=== PATIENT | male | born 1955 | race Caucasian/White ===

== ENCOUNTER → 2019-10-01 09:20 | Outpatient (BNVA) | payer OTHER, SELFPAY | PROVIDERS: Family Provider Nurse Practitioner; PCP Nurse Practitioner; Visit Provider Nurse Practitioner Family | DX: E78.5 Hyperlipidemia, unspecified (principal); I10 Essential (primary) hypertension; N52.9 Male erectile dysfunction, unspecified; Z76.0 Encounter for issue of repeat prescription | CPT/HCPCS: 80053; 80061 ==

== ENCOUNTER → 2020-08-06 09:18 | Outpatient (BNVA) | payer SELFPAY | PROVIDERS: Family Provider Nurse Practitioner; PCP Nurse Practitioner; Visit Provider Registered Nurse | DX: I10 Essential (primary) hypertension (principal) | CPT/HCPCS: 80053; 80061; 85025 ==

== ENCOUNTER → 2021-07-05 11:07 | Outpatient (BNVA) | payer OTHER, MEDICARE, SELFPAY | PROVIDERS: Family Provider Nurse Practitioner; PCP Nurse Practitioner; Visit Provider Registered Nurse | DX: R11.2 Nausea with vomiting, unspecified (principal); Z20.822 Contact with and (suspected) exposure to COVID-19 | CPT/HCPCS: 87635 ==

== ENCOUNTER 2021-07-12 15:16 | Outpatient (CLI) | payer OTHER, MEDICARE, SELFPAY ==
--- NOTE | 2021-07-12 15:27 | XRR_ITS ---
PROCEDURE INFORMATION: Exam: XR Chest Exam date and time: 07/12/2021 3:27 PM Age: 66 years old Clinical indication: Condition or disease; Other: Covid-19; Additional info: U07.1 - covid-19 TECHNIQUE: Imaging protocol: XR of the chest. Views: 2 views. COMPARISON: No relevant prior studies available. FINDINGS: Lungs: Coarsening of the lung parenchyma at the bases with bibasilar scarring. No consolidation. Pleural spaces: Unremarkable. No pleural effusion. No pneumothorax. Heart/Mediastinum: Unremarkable. No cardiomegaly. Bones/joints: Unremarkable. XR/XR chest 2V* [id number] IMPRESSION: No acute findings.
== END 2021-07-12 15:17 | disposition home or self-care (01) ==
PROVIDERS: PCP Registered Nurse; Visit Provider Registered Nurse
DX: U07.1 COVID-19 (principal); R06.00 Dyspnea, unspecified
CPT/HCPCS: 71046; 80053; 85025

== ENCOUNTER → 2021-08-19 09:28 | Outpatient (BNVA) | payer OTHER, MEDICARE, SELFPAY | PROVIDERS: PCP Registered Nurse; Visit Provider Surgery | DX: Z20.822 Contact with and (suspected) exposure to COVID-19 (principal) | CPT/HCPCS: 87635 ==

== ENCOUNTER 2021-08-26 06:30 | Day surgery (SDC) | payer OTHER, SELFPAY ==
[2021-08-24 09:43] VITALS: BMI 27.8
--- NOTE | 2021-08-26 06:49 | ANES.PREANE2 ---
Pre-Anesthetic Assessment Height/Weight: Height 1.8 m Weight 90.718 kg Preop Diagnosis: History of colon polyps Operation Date: 08/26/21 08:00 Proposed Procedures p Colonoscopy(Not Applicable) - Jason Yeh MD Familial anesthetic complications: None Was Beta Pieter taken within 24 hours: N/A Was Clonidine taken within 24 hours: N/A Last intake: 08/24/21 Social Tobacco and No alcohol Exam alert, oriented x 3, clear to auscultation bilaterally and regular rate & rhythm Airway Submandibular: within normal limits Cervical ROM: within normal limits Mallampati: Class II Dentition: chipped Comments: Comments: Missing History/ROS No significant complaints Pulmonary None reported CV/HEM Hypertension METS > 4 None reported Hepatic None reported GI Gastroesophageal Reflux Disease Metabolic None reported Musc/skel None reported Neuropsych None reported Anesthetic Plan ASA status: 2 Anesthesia: Anesthesia Evaluation and MAC Other: I discussed with the patient risks, goals, and benefits of MAC and general anesthesia. We discussed spectrum of MAC anesthesia including conversion to general as well as possibility of recall of intraoperative stimuli including discomfort/pain. Patient agrees to proceed with MAC. Risk of > 500 ml blood loss (7ml/kg in children): No Medications/Allergies Home Medications Medication Instructions Recorded Confirmed Last Taken Type sildenafil 50 mg tablet (Viagra) 50 mg PO DAILY PRN #30 tab 10/08/19 08/24/21 Unknown Rx albuterol sulfate 90 mcg/actuation 1 inh INHALATION QID #8.5 g 07/12/21 08/24/21 07/20/21 Rx aerosol inhaler (ProAir HFA) budesonide-formoterol HFA 80 2 puff INHALATION BID #10.2 g 07/12/21 08/24/21 07/20/21 Rx mcg-4.5 mcg/actuation aerosol inhaler (Symbicort) amlodipine 10 mg tablet 10 mg PO DAILY 08/24/21 08/24/21 08/25/21 History lisinopril 40 mg tablet 40 mg PO DAILY 08/24/21 08/24/21 08/25/21 History simvastatin 10 mg tablet 10 mg PO DAILY 08/24/21 08/24/21 08/25/21 History Allergies Allergy/AdvReac Type Severity Reaction Status Date / Time No Known Allergies Allergy Verified 08/26/21 08:05 PFSH Anesthesia Social History Smoking and tobacco status: current every day smoker Alcohol intake: never Adopted: No Caregiver/support person: No Lives independently: No Household members: spouse Marital status: service: No Current occupational status: retired History of recent travel: No Sexually active: Yes Current gender identity: Male Data Anesthesia Cardiac Studies: No Data to Display
[2021-08-26 06:57] VITALS: BP 125/69; PULSE 62; RESP 18; TEMP 36.1; O2SAT 98
[2021-08-26] MEDS: sodium chloride 0.9% 1,000 ML 30 ML IV (07:06)
--- NOTE | 2021-08-26 08:04 | W.PM.OPSFHP ---
Same Day Surgery H&P Indication for Procedure/HPI DATE OF PROCEDURE: August 26, 2021 CHIEF COMPLAINT/INDICATIONFOR SURGICAL PROCEDURE: Colon polyp PREOP DIAGNOSIS: History of colon polyps PLANNED PROCEDURE: Operation Date: 08/26/21 08:00 Proposed Procedures p Colonoscopy(Not Applicable) - Jason Yeh MD Mr. Simon is a pleasant 66 years old gentleman with history of colon polyps about 15 years ago where he did have a colonoscopy.? Ever since he never had a surveillance colonoscopy.? He denies bleeding per rectum or colon cancer history.? Patient is referred to my practice for consideration of surveillance colonoscopy. 08/26/2021 Today the patient is coming for surveillance colonoscopy ROS All systems have been reviewed negative except as per the above or per problem list Medications/Allergies* Home Medications Medication Instructions Recorded Confirmed Type amlodipine 10 mg tablet 10 mg PO DAILY 08/24/21 08/24/21 History lisinopril 40 mg tablet 40 mg PO DAILY 08/24/21 08/24/21 History simvastatin 10 mg tablet 10 mg PO DAILY 08/24/21 08/24/21 History Allergies/Adverse Reactions Allergy/AdvReac Type Severity Reaction Status Date / Time No Known Allergies Allergy Verified 08/26/21 08:05 Current Medications: Generic Name Dose Route Start Last Admin Trade Name Freq PRN Reason Stop Dose Admin Sodium Chloride 1,000 mls @ 30 mls/hr 08/26/21 06:45 08/26/21 07:06 Sodium Chloride 0.9% IV 30 mls/hr .Q24H VALERIA Administration Pertinent History/Comorbid Conditions* Social History Smoking and tobacco status: current every day smoker Alcohol intake: never Adopted: No Caregiver/support person: No Lives independently: No Household members: spouse Marital status: service: No Current occupational status: retired History of recent travel: No Sexually active: Yes Current gender identity: Male Pertinent Exam Findings alert, oriented x 3, regular rate & rhythm and procedure specific exam findings (Abdominal examination nontender nondistended soft) Recommendations Surgery/Procedure today (Surveillance colonoscopy ) Coding Level of Care Code Acute Locomotive Engineer for Rickey Martinez
[2021-08-26 08:37] VITALS: BP 107/68; PULSE 65; RESP 16; TEMP 36.1; O2SAT 95
[2021-08-26 08:48] VITALS: BP 97/65; PULSE 56; RESP 16; O2SAT 95
--- NOTE | 2021-08-26 10:13 | ANE.PACU2 ---
Inpatient post-anesthesia follow up: Airway intact: Yes Vital signs: Temperature 97 F Pulse Rate 56 Respiratory Rate 16 Blood Pressure 97/65 Pulse Oximetry 95 Oxygen Delivery Me thod Room Air Oxygen Flow Rate Fraction of Inspir ed Oxygen Hydration adequate: Yes Nausea and vomiting: No Pain level: 1 Mental status: Baseline
== END 2021-08-26 09:08 | disposition home or self-care (01) ==
PROVIDERS: PCP Registered Nurse; Visit Provider Surgery
PROC: 0DJD8ZZ Inspection of Lower Intestinal Tract, Via Natural or Artificial Opening Endoscopic (ICD-10-PCS; CPT 45378; principal; 2021-08-26 08:00)
DX: Z12.11 Encounter for screening for malignant neoplasm of colon (principal); Z86.010 Personal history of colon polyps; F17.210 Nicotine dependence, cigarettes, uncomplicated; D12.8 Benign neoplasm of rectum; I10 Essential (primary) hypertension; K21.9 Gastro-esophageal reflux disease without esophagitis
CPT/HCPCS: 45385; 88305; J2704; J7030

== ENCOUNTER → 2021-09-08 10:25 | Outpatient (BNVA) | payer MEDICARE, SELFPAY | PROVIDERS: PCP Registered Nurse; Visit Provider Surgery | DX: Z09 Encounter for follow-up examination after completed treatment for conditions other than malignant neoplasm (principal); K55.20 Angiodysplasia of colon without hemorrhage; K63.5 Polyp of colon; F17.210 Nicotine dependence, cigarettes, uncomplicated | CPT/HCPCS: 99213 ==

== ENCOUNTER 2021-09-17 08:27 | Outpatient (CLI) | payer MEDICARE, SELFPAY ==
--- NOTE | 2021-09-17 08:38 | CT_ITS ---
WS: [id number] LDCT LUNG CANCER SCREENING HISTORY: Z12.2 - Encounter for screening for malignant neoplasm TECHNIQUE: Axial imaging performed from the apices to 1 cm below the costophrenic angles. Coronal and sagittal reformats are submitted with axial MIP series. All CT scans at [facility] use at least one of these dose optimization techniques: automated exposure control; mA and/or kV adjustment per patient size (includes targeted exams where dose is matched to clinical indication); or iterativ e reconstruction. DLP: 79.60 mGy.cm DIvol: Mean CTDIvol: 1.60 (mGy) COMPARISON: None available. Diagnostic quality: Satisfactory Lung Nodules: Rounded 8 mm nodule with no calcification partially abuts the minor fissure and extends towards the RIGHT upper lobe. There is additional pleural thickening along the fissure. There is ext ensive interstitial thickening and fibrotic changes throughout both lungs involving the upper and low er lobes. More predominant along the fissures and in the lung periphery. Heart: Normal size heart. Normal size pulmonary artery. Other findings: 19 mm RIGHT paratracheal lymph node is enlarged. There are additional smaller but ind eterminate lymph nodes in the hilar regions. CT/CT lung screening [id number] IMPRESSION: LUNG-RADS: 4BS-Suspicious with Significant Findings FOLLOW UP: 3 Month LDCT OTHER FINDINGS (S MODIFIER): There is extensive interstitial and pleural thicke cornell which is probably related to chronic interstitial lung disease and fibrosi s. Enlarged RIGHT paratracheal lymph node is probably reactive. This can also be f urther evaluated on follow-up CT.
== END 2021-09-17 08:28 | disposition home or self-care (01) ==
LOC: RAD 08:31
PROVIDERS: PCP Registered Nurse; Visit Provider Registered Nurse
DX: Z12.2 Encounter for screening for malignant neoplasm of respiratory organs (principal)
CPT/HCPCS: 71271

== ENCOUNTER → 2021-10-06 09:38 | Outpatient (BNVA) | payer MEDICARE, SELFPAY | PROVIDERS: PCP Registered Nurse; Visit Provider Internal Medicine Critical Care Medicine | DX: J84.9 Interstitial pulmonary disease, unspecified (principal); R59.0 Localized enlarged lymph nodes; F17.210 Nicotine dependence, cigarettes, uncomplicated | CPT/HCPCS: 36415; 82085; 82550; 84182; 85651; 86038; 86140; 86200; 86235; 86331; 86431; 86606; 86609; 99204 ==

== ENCOUNTER 2021-10-20 06:48 | Outpatient (CLI) | payer MEDICARE, SELFPAY ==
--- NOTE | 2021-10-20 12:54 | PFTS_ITS ---
Date of Study:10/20/21 Date of Dictation: MECHANICS: Forced vital capacity (FVC) is normal. Forced expiratory volume in one second (FEV1) is normal. FEV1/FVC is normal. FLOW VOLUME LOOP: Normal. LUNG VOLUMES: Total lung capacity (TLC) is normal. Residual volume (RV) is normal. DIFFUSING CAPACITY FOR CARBON MONOXIDE: Moderately reduced. INTERPRETATION: The postbronchodilator spirometry is normal. There is no significant postbronchodilator response. Lung volumes are normal. Gas exchange (DLCO) is moderately reduced. MTDD
== END 2021-10-20 06:49 | disposition home or self-care (01) ==
PROVIDERS: PCP Registered Nurse; Visit Provider Internal Medicine Critical Care Medicine
DX: J84.9 Interstitial pulmonary disease, unspecified (principal)
CPT/HCPCS: 94060; 94726; 94729; J7611

== ENCOUNTER → 2021-10-27 10:26 | Outpatient (BNVA) | payer MEDICARE, SELFPAY | PROVIDERS: PCP Registered Nurse; Visit Provider Internal Medicine Critical Care Medicine | DX: J84.9 Interstitial pulmonary disease, unspecified (principal); R59.0 Localized enlarged lymph nodes; F17.210 Nicotine dependence, cigarettes, uncomplicated; Z86.16 Personal history of COVID-19 | CPT/HCPCS: 99214 ==

== ENCOUNTER → 2021-12-14 08:40 | Outpatient (BNVA) | payer MEDICARE, SELFPAY | PROVIDERS: PCP Registered Nurse; Visit Provider Internal Medicine Rheumatology | DX: J84.9 Interstitial pulmonary disease, unspecified (principal); R76.8 Other specified abnormal immunological findings in serum; G72.49 Other inflammatory and immune myopathies, not elsewhere classified; Z11.59 Encounter for screening for other viral diseases; M25.50 Pain in unspecified joint; K21.9 Gastro-esophageal reflux disease without esophagitis; J44.9 Chronic obstructive pulmonary disease, unspecified; Z86.16 Personal history of COVID-19; Z79.899 Other long term (current) drug therapy | CPT/HCPCS: 36415; 80076; 81401; 82085; 82306; 82550; 82565; 83520; 85025; 85651; 86038; 86140; 86480; 86704; 86803; 87340; 99205 ==

== ENCOUNTER 2021-12-23 15:32 | Outpatient (CLI) | payer MEDICARE, SELFPAY ==
--- NOTE | 2021-12-23 16:30 | CT_ITS ---
WS: [id number] CT CHEST CT-HIGH RESOLUTION, NONCONTRAST. HISTORY: Interstitial lung disease. Technique: High-resolution chest CT is performed in inspiration, expiration, supine and prone [facility]. All CT scans at [facility] use at least one of these dose optimization techniques: automated exposure control; mA and/or kV adjustment per patient size (includes targeted exams where dose is mat ched to clinical indication); or iterative reconstruction. DLP: 2876.78 mGy.cm COMPARISON: None. Findings: Lung volumes appear slightly reduced. There is extensive bilateral upper and lower lobe manuela undglass attenuation. Slightly more prominent in the lower lung huff. No honeycombing. Very early m inimal changes of bronchiectasis in the lower lung huff without retraction. No discrete nodules are identified. With expiration there is significant decrease in the lung volumes. The areas of groundgl ass increase as expected. No focal lucency or air trapping is identified. On the prone imaging there is very slight improvement but there are significant areas of groundglass opacification persisting. 15 mm RIGHT paratracheal and subcarinal lymph nodes. There are additional smaller lymph nodes. Pulmon johnny artery size is normal. Mild atherosclerosis of aorta. Small hiatal hernia. Gallbladder is contracted. No adrenal mass. CT/CT chest wo con [id number] Impression: 1. Diffuse bilateral groundglass opacifications without significant traction b ronchiectasis or honeycombing. Consider hypersensitivity pneumonitis and NSIP. 2. Mildly prominent RIGHT paratracheal and subcarinal lymph nodes to 15 mm May be reactive.
== END 2021-12-23 15:33 | disposition home or self-care (01) ==
PROVIDERS: PCP Registered Nurse; Visit Provider Internal Medicine Critical Care Medicine
DX: J84.9 Interstitial pulmonary disease, unspecified (principal)
CPT/HCPCS: 71250

== ENCOUNTER → 2022-01-27 10:29 | Outpatient (BNVA) | payer MEDICARE, SELFPAY | PROVIDERS: PCP Registered Nurse; Visit Provider Internal Medicine Critical Care Medicine | DX: J84.9 Interstitial pulmonary disease, unspecified (principal); H53.8 Other visual disturbances; R59.0 Localized enlarged lymph nodes; F17.210 Nicotine dependence, cigarettes, uncomplicated | CPT/HCPCS: 80048; 80076; 82550; 82565; 86140; 99214 ==

== ENCOUNTER → 2022-02-02 09:42 | Outpatient (BNVA) | payer MEDICARE, SELFPAY | PROVIDERS: PCP Registered Nurse; Referring Provider Internal Medicine Rheumatology; Visit Provider Specialist | DX: G62.89 Other specified polyneuropathies (principal); M25.50 Pain in unspecified joint; G72.49 Other inflammatory and immune myopathies, not elsewhere classified; J84.9 Interstitial pulmonary disease, unspecified; Z79.899 Other long term (current) drug therapy; R76.8 Other specified abnormal immunological findings in serum; R06.09 Other forms of dyspnea; J44.9 Chronic obstructive pulmonary disease, unspecified; Z86.16 Personal history of COVID-19; F17.210 Nicotine dependence, cigarettes, uncomplicated | CPT/HCPCS: 36415; 82085; 85025; 85651; 95913; 99214; 99215 ==

== ENCOUNTER → 2022-03-03 11:34 | Outpatient (BNVA) | payer MEDICARE, SELFPAY | PROVIDERS: PCP Registered Nurse; Referring Provider Internal Medicine Rheumatology; Visit Provider Specialist | DX: R76.8 Other specified abnormal immunological findings in serum (principal); J84.9 Interstitial pulmonary disease, unspecified; G72.49 Other inflammatory and immune myopathies, not elsewhere classified | CPT/HCPCS: 95861; 99202 ==

== ENCOUNTER 2022-03-14 11:24 | Outpatient (CLI) | payer MEDICARE, SELFPAY ==
--- NOTE | 2022-03-14 11:30 | USCV_ITS ---
Erasmo Simon Age: 67 Gender: M : 1955 Exam Date: 03/14/2022 11:33 Ordering Phys: Micky Calvo MD Technologist: CT [place]am [place] [facility] [place] Indication: visual disturbance Risk Factors: Previous Vascular Surgery: Right Brachial BP: / Left Brachial BP: / Right Left Velocity (cm/s) Spectral Plaque Velocity (cm/s) Spectral Plaque Syst/Diast Broadening Syst/Diast Broadening 60.40/ 16.00 Prox CCA 86.90 / 20.00 68.00/ 16.80 Mid CCA 73.90 / 15.60 69.50/ 16.00 Distal CCA 64.50 / 18.70 146.70/43.50 Prox ICA 52.50 / 15.00 131.80/32.10 Mid ICA 59.60 / 18.40 134.10/25.20 Distal ICA 52.60 / 13.00 90.20 ECA 99.90 2.11 ICA/CCA 0.69 Antegrade Vertebral Antegrade 42.40/ 11.50 cm/s 49.30/ 17.60 cm/s Tri Subclavian Tri 85.70 86.90 CONCLUSIONS Right ICA stenosis 50-69%. Moderate calcified atheromatous plaque right carotid bulb/ICA. Left ICA stenosis <50%. Mild atheromatous plaque left carotid bulb/ICA. Normal antegrade Doppler flow noted in the right vertebral artery. Normal antegrade Doppler flow noted in the left vertebral artery. Guzman Dunn MD (Electronically Signed) Final Date: 15 March 2022 11:51 S
== END 2022-03-14 11:25 | disposition home or self-care (01) ==
PROVIDERS: PCP Registered Nurse; Visit Provider Internal Medicine Critical Care Medicine
DX: H53.8 Other visual disturbances (principal); I65.23 Occlusion and stenosis of bilateral carotid arteries
CPT/HCPCS: 93880

== ENCOUNTER → 2022-03-31 07:53 | Outpatient (BNVA) | payer MEDICARE, SELFPAY | PROVIDERS: PCP Registered Nurse; Visit Provider Thoracic Surgery (Cardiothoracic Vascular Surgery) | DX: I77.9 Disorder of arteries and arterioles, unspecified (principal) | CPT/HCPCS: 99203 ==

== ENCOUNTER 2022-03-31 08:32 | Outpatient (CLI) | payer MEDICARE, SELFPAY ==
[2022-03-31 09:00] LABS: Basophils # 0.1 10^3/uL (0.0-0.1); Basophils % 0.8 %; Eosinophils # 0.2 10^3/uL (0.0-0.8); Hematocrit 44.4 % (42.0-52.0); Hemoglobin 14.1 g/dL (11.7-16.6); Lymphocytes # 2.7 10^3/uL (0.8-4.8); Lymphocytes % 29.8 %; Mean Corpuscular HGB Conc 31.8 g/dL (30.0-36.0); Mean Corpuscular Hemoglobin 27.6 pg (28.0-34.0); Mean Corpuscular Volume 87.1 fl (80-94); Mean Platelet Volume 8.6 fL (7.4-10.4); Monocytes # 0.9 10^3/uL (0.2-0.9); Monocytes % 10.5 %; Neutrophils # 5.02 10^3/uL (1.8-7.7); Nucleated Red Blood Cells % 0 %; Platelet Count 404 10^3/cmm (130-400)
[2022-03-31 09:12] LABS: Erythrocyte Sedimentation Rate 36 mm/hr (0-10)
[2022-03-31 09:27] LABS: Alanine Aminotransferase 10 U/L (0-41); Albumin Level 3.9 g/dL (3.5-5.2); Alkaline Phosphatase 81 U/L (40-130); Aspartate Amino Transferase 15 U/L (0-40); C Reactive Protein 25.4 mg/L (0.0-4.9); Globulin 3.6 g/dL (1.3-4.6); Glomerular Filtration Rate 74.8 mL/min (90-130); Total Bilirubin 0.3 mg/dL (0.15-1.2); Total Protein 7.5 g/dL (6.6-8.7)
[2022-03-31 09:43] LABS: Creatine Phosphokinase 396 U/L (39-308)
[2022-04-01 13:22] LABS: Aldolase 6.3 U/L (< OR = 8.1)
== END 2022-03-31 08:33 | disposition home or self-care (01) ==
LOC: LAB 08:35
PROVIDERS: PCP Registered Nurse; Visit Provider Internal Medicine Rheumatology
DX: G72.49 Other inflammatory and immune myopathies, not elsewhere classified (principal); J84.9 Interstitial pulmonary disease, unspecified; Z79.899 Other long term (current) drug therapy
CPT/HCPCS: 36415; 80076; 82085; 82550; 82565; 85025; 85651; 86140

== ENCOUNTER 2022-04-06 12:37 | Outpatient (CLI) | payer MEDICARE, SELFPAY | END 2022-04-06 12:38 | disposition home or self-care (01) | LOC: RT 12:39 | PROVIDERS: PCP Registered Nurse; Visit Provider Internal Medicine Pulmonary Disease | DX: J84.9 Interstitial pulmonary disease, unspecified (principal); G72.49 Other inflammatory and immune myopathies, not elsewhere classified; M25.50 Pain in unspecified joint; R76.8 Other specified abnormal immunological findings in serum; Z79.899 Other long term (current) drug therapy; R06.09 Other forms of dyspnea; J44.9 Chronic obstructive pulmonary disease, unspecified; Z86.16 Personal history of COVID-19 | CPT/HCPCS: 94010; 94726; 94729; 99214 ==

== ENCOUNTER → 2022-06-02 13:04 | Outpatient (BNVA) | payer MEDICARE, SELFPAY | PROVIDERS: PCP Registered Nurse; Visit Provider Internal Medicine Pulmonary Disease | DX: J84.9 Interstitial pulmonary disease, unspecified (principal); R59.0 Localized enlarged lymph nodes; J40 Bronchitis, not specified as acute or chronic; F17.210 Nicotine dependence, cigarettes, uncomplicated; R06.02 Shortness of breath | CPT/HCPCS: 99214 ==

== ENCOUNTER → 2022-06-24 09:28 | Outpatient (BNVA) | payer MEDICARE, SELFPAY | PROVIDERS: PCP Registered Nurse; Visit Provider Internal Medicine Rheumatology | DX: G72.49 Other inflammatory and immune myopathies, not elsewhere classified (principal); Z79.899 Other long term (current) drug therapy | CPT/HCPCS: 80076; 82085; 82550; 82552; 82565; 85025; 85651; 86140 ==

== ENCOUNTER → 2022-07-06 14:05 | Outpatient (BNVA) | payer MEDICARE, SELFPAY | PROVIDERS: PCP Registered Nurse; Visit Provider Internal Medicine Rheumatology | DX: M19.90 Unspecified osteoarthritis, unspecified site (principal); G72.49 Other inflammatory and immune myopathies, not elsewhere classified; R76.8 Other specified abnormal immunological findings in serum; J84.9 Interstitial pulmonary disease, unspecified; F17.210 Nicotine dependence, cigarettes, uncomplicated; J44.9 Chronic obstructive pulmonary disease, unspecified; Z86.16 Personal history of COVID-19 | CPT/HCPCS: 99214 ==

== ENCOUNTER 2022-08-22 06:55 | Outpatient (CLI) | payer MEDICARE, SELFPAY ==
--- NOTE | 2022-08-22 07:00 | CTR_ITS ---
PROCEDURE INFORMATION: Exam: CT Chest Without Contrast; Diagnostic Exam date and time: 08/22/2022 7:15 AM Age: 67 years old Clinical indication: Condition or disease; Lung condition and disease; Other: Interstitial lung disease; Additional info: 3 month f/u interstitial lung disease TECHNIQUE: Imaging protocol: Diagnostic computed tomography of the chest without contrast. Radiation optimization: All CT scans at this facility use at least one of these dose optimization techniques: automated exposure control; mA and/or kV adjustment per patient size (includes targeted exams where dose is matched to clinical indication); or iterative reconstruction. REPORTING DATA: Count of CT and Cardiac NM exams in prior 12 months: This patient has received 2 known CTs and 0 known cardiac nuclear medicine studies in the 12 months prior to the current study. COMPARISON: CT chest wo con [id number] 12/23/2021 3:48 PM RADIATION DOSE METRICS: Total DLP (mGy-cm): 2155.17 FINDINGS: Lungs: COPD, bilateral interstitial/airspace disease, and chronic granulomatous disease. When compared to the previous study, the extent of lower lobe airspace disease has improved. Stable 7 mm nodular lesion contiguous with the right minor fissure (series 4: Image 28 and series 18: Image 25). Recommend follow-up CT Chest in 6-12 months. (References: Genoveva and Deacon). Pleural spaces: No pleural effusion. Heart: No cardiomegaly or significant coronary artery calcification. Lymph nodes: Calcified and noncalcified lymph nodes including a stable 2.2 x 1.9 by 2.4 cm noncalcified right paratracheal lymph node. Vasculature: Calcification of the normal caliber thoracic aorta. Bones/joints: Mild degenerative change. Soft tissues: Unremarkable. CT/CT chest wo con [id number] IMPRESSION: 1. COPD, bilateral interstitial/airspace disease, and chronic granulomatous disease. When compared to the previous study, the extent of lower lobe airspace disease has improved. 2. Stable 7 mm nodular lesion contiguous with the right minor fissure (series 4: Image 28 and series 18: Image 25). Recommend follow-up CT Chest in 6-12 months. (References: Genoveva and Deacon). 3. Additional findings as described above.
== END 2022-08-22 06:56 | disposition home or self-care (01) ==
LOC: RAD 06:57
PROVIDERS: PCP Registered Nurse; Visit Provider Internal Medicine Pulmonary Disease
DX: J84.9 Interstitial pulmonary disease, unspecified (principal); J44.9 Chronic obstructive pulmonary disease, unspecified; R91.1 Solitary pulmonary nodule
CPT/HCPCS: 71250

== ENCOUNTER 2022-08-30 06:39 | Outpatient (CLI) | payer MEDICARE, SELFPAY | END 2022-08-30 06:40 | disposition home or self-care (01) | LOC: RT 06:40 | PROVIDERS: PCP Registered Nurse; Visit Provider Internal Medicine Pulmonary Disease | DX: J84.9 Interstitial pulmonary disease, unspecified (principal); F17.210 Nicotine dependence, cigarettes, uncomplicated | CPT/HCPCS: 94010; 94726; 94729 ==

== ENCOUNTER → 2022-09-28 14:22 | Outpatient (BNVA) | payer MEDICARE, SELFPAY | PROVIDERS: PCP Registered Nurse; Visit Provider Internal Medicine Rheumatology | DX: G72.49 Other inflammatory and immune myopathies, not elsewhere classified (principal); M19.90 Unspecified osteoarthritis, unspecified site; Z79.899 Other long term (current) drug therapy; R76.8 Other specified abnormal immunological findings in serum; J84.9 Interstitial pulmonary disease, unspecified | CPT/HCPCS: 36415; 80076; 82085; 82550; 82565; 85025; 86140; 99214 ==

== ENCOUNTER → 2022-12-21 08:34 | Outpatient (BNVA) | payer MEDICARE, SELFPAY | PROVIDERS: PCP Registered Nurse; Visit Provider Internal Medicine Pulmonary Disease | DX: J84.9 Interstitial pulmonary disease, unspecified (principal); R59.0 Localized enlarged lymph nodes; J98.4 Other disorders of lung; F17.210 Nicotine dependence, cigarettes, uncomplicated; Z79.52 Long term (current) use of systemic steroids; R76.8 Other specified abnormal immunological findings in serum | CPT/HCPCS: 99214 ==

== ENCOUNTER → 2022-12-29 14:24 | Outpatient (BNVA) | payer MEDICARE, SELFPAY | PROVIDERS: PCP Registered Nurse; Visit Provider Internal Medicine Rheumatology | DX: M19.90 Unspecified osteoarthritis, unspecified site (principal); G72.49 Other inflammatory and immune myopathies, not elsewhere classified; R76.8 Other specified abnormal immunological findings in serum; J84.9 Interstitial pulmonary disease, unspecified | CPT/HCPCS: 36415; 80076; 82550; 82565; 85025; 86140; 99214 ==

== ENCOUNTER 2023-02-22 09:46 | Outpatient (CLI) | payer MEDICARE, SELFPAY ==
--- NOTE | 2023-02-22 10:00 | CT_ITS ---
WS: [id number] CT chest wo con [id number] HISTORY: ct chest to follow up on right middle lobe nodule TECHNIQUE: Axial imaging performed through the thorax. Coronal and sagittal reformats are submitted. All CT scans at [facility] use at least one of these dose optimization techniques: automated exposure control; mA and/or kV adjustment per patient size (includes targeted exams where dose is mat ched to clinical indication); or iterative reconstruction. CONTRAST: None DLP: 545.85 mGy.cm COMPARISON: 09/17/2021 and 08/22/2022 Lungs and central airway: Lung volumes slightly decreased. 7 mm noncalcified nodule in the RIGHT nadiya r fissure is reidentified measuring 7 mm. No change in size since the most recent examination of 08/22. This nodule is slightly decreased as compared to 09/17/2021. Continued bilateral areas of inter stitial thickening and groundglass attenuation. No areas of dense consolidation. Pleura: Normal. No pleural effusion. Heart and pericardium: Normal size heart with no pericardial effusion. Mediastinum and gadiel: No mediastinum or hilar adenopathy. Vessels: Mild atherosclerosis aorta. Normal sized pulmonary artery. Chest wall and lower neck: No soft tissue masses. Upper abdomen: Calcified granuloma near the GE junction. No adrenal mass. Osseous structures: No destructive process. IMPRESSION: 1. Stable 7 mm nodule along the RIGHT minor fissure. No increase in size since 09/17/2021. 2. Diffuse bilateral groundglass opacifications and interstitial thickening. This can be seen with hy persensitivity pneumonia and NSIP. 3. No adenopathy or progression of lymph node size. No pneumonia or dense consolidation.
== END 2023-02-22 09:47 | disposition home or self-care (01) ==
PROVIDERS: PCP Registered Nurse; Visit Provider Internal Medicine Pulmonary Disease
DX: J84.9 Interstitial pulmonary disease, unspecified (principal); R91.8 Other nonspecific abnormal finding of lung field
CPT/HCPCS: 71250

== ENCOUNTER 2023-03-22 07:43 | Outpatient (CLI) | payer MEDICARE, SELFPAY ==
--- NOTE | 2023-03-22 08:15 | USCV_ITS ---
Erasmo Simon Age: 68 Gender: M : 1955 Exam Date: 03/22/2023 08:13 Ordering Phys: Arben Maritnez MD (Andy) ([email or web address] [place] Technologist: YANE [place] [facility] [place]: STENOSIS Risk Factors: Previous Vascular Surgery: Right Brachial BP: / Left Brachial BP: / Right Left Velocity (cm/s) Spectral Plaque Velocity (cm/s) Spectral Plaque Syst/Diast Broadening Syst/Diast Broadening 71.70/ 18.70 Prox CCA 72.00 / 10.90 62.00/ 18.10 Mid CCA 63.80 / 15.90 45.80/ 13.60 Distal CCA 70.30 / 19.70 73.80/ 27.20 Prox ICA 54.40 / 20.20 138.80/35.70 Mid ICA 68.50 / 25.00 97.80/ 27.80 Distal ICA 66.30 / 24.20 100.20 ECA 93.70 1.94 ICA/CCA 0.95 Antegrade Vertebral Antegrade 33.40/ 8.70 cm/s 20.10/ 6.90 cm/s Tri Subclavian Tri 128.6 104.3 0 0 FINDINGS Comparison:. 03/14/22. Mild elevation of velocities and plaque, bilateral. Greater plaque on the right. Antegrade vertebral arteries. CONCLUSIONS Right ICA stenosis 50-69%. Left ICA stenosis < 50%. No interval change in stenosis since prior exam. Dr. Zofia Brandon DO (Electronically Signed) Final Date: 22 March 2023 11:52 S
== END 2023-03-22 07:44 | disposition home or self-care (01) ==
LOC: RAD 07:43
PROVIDERS: PCP Registered Nurse; Visit Provider Thoracic Surgery (Cardiothoracic Vascular Surgery)
DX: I65.23 Occlusion and stenosis of bilateral carotid arteries (principal)
CPT/HCPCS: 93880

== ENCOUNTER → 2023-03-30 09:32 | Outpatient (BNVA) | payer MEDICARE, SELFPAY | PROVIDERS: PCP Registered Nurse; Visit Provider Thoracic Surgery (Cardiothoracic Vascular Surgery) | DX: I77.9 Disorder of arteries and arterioles, unspecified (principal) | CPT/HCPCS: 99213 ==

== ENCOUNTER → 2023-04-06 13:26 | Outpatient (BNVA) | payer MEDICARE, SELFPAY | PROVIDERS: PCP Registered Nurse; Visit Provider Internal Medicine Rheumatology | DX: G72.49 Other inflammatory and immune myopathies, not elsewhere classified (principal); R76.8 Other specified abnormal immunological findings in serum; J84.9 Interstitial pulmonary disease, unspecified; M19.90 Unspecified osteoarthritis, unspecified site | CPT/HCPCS: 36415; 80076; 82565; 85025; 86140; 99214 ==

== ENCOUNTER → 2023-06-21 09:03 | Outpatient (BNVA) | payer MEDICARE, SELFPAY | PROVIDERS: PCP Registered Nurse; Visit Provider Internal Medicine Pulmonary Disease | DX: J84.9 Interstitial pulmonary disease, unspecified (principal); R59.0 Localized enlarged lymph nodes; J98.4 Other disorders of lung; F17.210 Nicotine dependence, cigarettes, uncomplicated; R91.1 Solitary pulmonary nodule | CPT/HCPCS: 99214 ==

== ENCOUNTER 2023-07-11 08:42 | Outpatient (CLI) | payer MEDICARE, SELFPAY | END 2023-07-11 08:43 | disposition home or self-care (01) | LOC: RT 08:43 | PROVIDERS: PCP Registered Nurse; Visit Provider Internal Medicine Pulmonary Disease | DX: J98.4 Other disorders of lung (principal); F17.210 Nicotine dependence, cigarettes, uncomplicated | CPT/HCPCS: 94010; 94618; 94726; 94729 ==

== ENCOUNTER 2023-07-20 10:00 | Outpatient (CLI) | payer MEDICARE, SELFPAY ==
--- NOTE | 2023-07-20 10:30 | CT_ITS ---
WS: [id number] CT CHEST CT-HIGH RESOLUTION, NONCONTRAST. HISTORY: Interstitial lung disease. Technique: High-resolution chest CT is performed in inspiration, expiration, supine and prone positio cornell. All CT scans at [facility] use at least one of these dose optimization techniques: automated exposure control; mA and/or kV adjustment per patient size (includes targeted exams where dose is mat ched to clinical indication); or iterative reconstruction. DLP: 1680.07 mGy.cm COMPARISON: 02/22/2023 Findings: Continued multi lobar and bilateral scattered areas of groundglass attenuation throughout b oth lungs. Minimal if any improvement. But there is also no obvious progression. There is no consolid ation. This is predominantly of groundglass attenuation with a vessels visible through the airspace d isease. Favor the upper lobe involvement is greater than the lung bases. 5 mm nodule at the RIGHT luz maria g base, image 47 series 4. There is no honeycombing or significant traction bronchiectasis. During pr one and expiratory imaging there is no obvious change in the extent of the airspace disease. None of these areas demonstrate atelectasis with improvement during change in position. Mediastinal and hilar lymph nodes are reidentified. Largest lymph nodes measure approximately 2.0 cm with no increase in size or change since 02/22/2023. The largest lymph node maintains a normal fatty h ilum. There are additional smaller lymph nodes which are unchanged. No pericardial or pleural effusio ns. Heart size is normal. Small calcifications adjacent to the distal esophagus. No esophageal dilata tion. Noncontrast evaluation of the liver is negative. No adrenal mass. Impression: 1. Continued bilateral, multi lobar areas of groundglass attenuation which have not improved or wors ened over the most recent CTs. The upper lobe distribution appears slightly greater than the lower lo be. This does not appear to be UIP. No honeycombing. Consider NSIP or connective tissue related lung disorder. 2. Mildly prominent, probably reactive mediastinal and hilar lymph nodes are unchanged. 3. There is a 5 mm nodule at the RIGHT lung base which has not been seen on prior studies. Consider follow-up in 6 months. Nodule previously described along the RIGHT major fissure is not identified.
== END 2023-07-20 10:01 | disposition home or self-care (01) ==
LOC: RAD 10:01
PROVIDERS: PCP Registered Nurse; Visit Provider Internal Medicine Pulmonary Disease
DX: R91.1 Solitary pulmonary nodule (principal); J84.9 Interstitial pulmonary disease, unspecified
CPT/HCPCS: 71250

== ENCOUNTER → 2023-08-03 11:02 | Outpatient (BNVA) | payer MEDICARE, SELFPAY | PROVIDERS: PCP Registered Nurse; Visit Provider Internal Medicine Rheumatology | DX: J84.9 Interstitial pulmonary disease, unspecified (principal); G72.49 Other inflammatory and immune myopathies, not elsewhere classified; R76.8 Other specified abnormal immunological findings in serum; M19.90 Unspecified osteoarthritis, unspecified site | CPT/HCPCS: 36415; 80076; 82565; 85025; 86140; 99214 ==

== ENCOUNTER → 2023-11-02 09:50 | Outpatient (BNVA) | payer MEDICARE, SELFPAY | PROVIDERS: PCP Registered Nurse; Visit Provider Internal Medicine Pulmonary Disease | DX: J84.9 Interstitial pulmonary disease, unspecified (principal); R59.0 Localized enlarged lymph nodes; J98.4 Other disorders of lung; F17.210 Nicotine dependence, cigarettes, uncomplicated | CPT/HCPCS: 99214 ==

== ENCOUNTER → 2024-02-08 10:29 | Outpatient (BNVA) | payer MEDICARE, SELFPAY | PROVIDERS: PCP Registered Nurse; Visit Provider Internal Medicine Rheumatology | DX: G72.49 Other inflammatory and immune myopathies, not elsewhere classified (principal); R76.8 Other specified abnormal immunological findings in serum; J84.9 Interstitial pulmonary disease, unspecified; M19.90 Unspecified osteoarthritis, unspecified site; Z79.899 Other long term (current) drug therapy; Z11.1 Encounter for screening for respiratory tuberculosis; Z11.59 Encounter for screening for other viral diseases; F17.210 Nicotine dependence, cigarettes, uncomplicated | CPT/HCPCS: 36415; 80076; 82085; 82550; 82565; 85025; 85651; 86140; 99214 ==

== ENCOUNTER 2024-04-16 15:18 | Outpatient (CLI) | payer MEDICARE, SELFPAY ==
--- NOTE | 2024-04-16 16:15 | USCV_ITS ---
Erasmo Simon Age: 69 Gender: M : 1955 Exam Date: 04/16/2024 15:34 Ordering Phys: Jeffery Alvarado MD ([email or web address]) Technologist: R [place] [facility] [place]: Risk Factors: Previous Vascular Surgery: Right Brachial BP: / Left Brachial BP: / Right Left Velocity (cm/s) Spectral Plaque Velocity (cm/s) Spectral Plaque Syst/Diast Broadening Syst/Diast Broadening 54.40/ 16.80 Prox CCA 72.40 / 16.40 67.20/ 14.10 Mid CCA 68.00 / 17.40 59.00/ 20.40 Distal CCA 60.70 / 19.50 75.60/ 23.40 Prox ICA 46.10 / 13.20 102.10/24.70 Mid ICA 40.30 / 13.70 64.30/ 14.70 Distal ICA 41.40 / 11.30 94.20 ECA 86.10 1.70 ICA/CCA 0.80 Antegrade Vertebral Antegrade 54.40/ 19.10 cm/s 50.20/ 14.90 cm/s Tri Subclavian Tri 72.80 56.80 CONCLUSIONS Right ICA stenosis <50%. Mild atheromatous plaque right carotid bulb/ICA. Left ICA stenosis <50%. Mild atheromatous plaque left carotid bulb/ICA. Intimal thickening in the common carotid arteries and internal carotid arteries bilaterally. Normal antegrade Doppler flow noted in the right vertebral artery. Normal antegrade Doppler flow noted in the left vertebral artery. Guzman Dunn MD (Electronically Signed) Final Date: 17 April 2024 10:20 S
== END 2024-04-16 15:19 | disposition home or self-care (01) ==
LOC: RAD 15:20
PROVIDERS: PCP Registered Nurse; Visit Provider Internal Medicine Cardiovascular Disease
DX: I65.23 Occlusion and stenosis of bilateral carotid arteries (principal)
CPT/HCPCS: 93880

== ENCOUNTER → 2024-05-06 12:34 | Outpatient (BNVA) | payer MEDICARE, SELFPAY | PROVIDERS: PCP Registered Nurse; Visit Provider Internal Medicine | DX: R07.9 Chest pain, unspecified (principal) | CPT/HCPCS: 93005; 99204 ==

== ENCOUNTER 2024-06-10 10:04 | Outpatient (CLI) | payer MEDICARE, SELFPAY ==
[2024-06-10 10:43] LABS: Basophils # 0.1 10^3/uL (0.0-0.1); Basophils % 0.5 %; Eosinophils # 0.1 10^3/uL (0.0-0.8); Hematocrit 45.9 % (37-53); Lymphocytes # 1.7 10^3/uL (0.8-4.8); Lymphocytes % 16.8 %; Mean Corpuscular HGB Conc 33.1 g/dL (30-55); Mean Corpuscular Volume 87.4 fl (82-101); Monocytes # 0.8 10^3/uL (0.2-0.9); Monocytes % 8.4 %; Neutrophils # 7.18 10^3/uL (1.8-7.7); Neutrophils % 72.9 %; Nucleated Red Blood Cells % 0 %; Platelet Count 351 10^3/cmm (157-399); Red Blood Count 5.25 10^6/uL (3.85-5.65); Red Cell Distribution Width 14.8 % (12.1-15.1); White Blood Count 9.85 10^3/uL (3.29-11.43)
[2024-06-10 10:55] LABS: Erythrocyte Sedimentation Rate 34 mm/hr (0-10)
[2024-06-10 11:02] LABS: Alanine Aminotransferase 8 U/L (0-41); Albumin Level 3.9 g/dL (3.5-5.2); Alkaline Phosphatase 108 U/L (40-130); Aspartate Amino Transferase 10 U/L (0-40); C Reactive Protein 14.9 mg/L (0.0-4.9); Creatine Phosphokinase 122 U/L (39-308); Globulin 3.5 g/dL (1.3-4.6); Glomerular Filtration Rate 66.6 mL/min (90-130); Total Bilirubin 0.3 mg/dL (0.15-1.2); Total Protein 7.4 g/dL (6.6-8.7)
[2024-06-12 15:36] LABS: Aldolase 4.2 U/L (< OR = 8.1)
== END 2024-06-10 10:05 | disposition home or self-care (01) ==
PROVIDERS: Internal Medicine Rheumatology; PCP Registered Nurse; Visit Provider Internal Medicine
DX: G72.49 Other inflammatory and immune myopathies, not elsewhere classified (principal); Z79.899 Other long term (current) drug therapy
CPT/HCPCS: 36415; 80076; 82085; 82550; 82565; 85025; 85651; 86140

== ENCOUNTER → 2024-06-20 10:45 | Outpatient (BNVA) | payer MEDICARE, SELFPAY | PROVIDERS: PCP Registered Nurse; Visit Provider Internal Medicine Rheumatology | DX: G72.49 Other inflammatory and immune myopathies, not elsewhere classified (principal); R76.8 Other specified abnormal immunological findings in serum; J84.9 Interstitial pulmonary disease, unspecified; M19.90 Unspecified osteoarthritis, unspecified site | CPT/HCPCS: 99214 ==

== ENCOUNTER 2024-10-09 11:41 | Outpatient (CLI) | payer MEDICARE, SELFPAY ==
[2024-10-09 12:32] LABS: Basophils # 0.1 10^3/uL (0.0-0.1); Basophils % 0.6 %; Eosinophils # 0.2 10^3/uL (0.0-0.8); Eosinophils % 2.2 %; Hematocrit 45.9 % (37-53); Lymphocytes # 2.1 10^3/uL (0.8-4.8); Lymphocytes % 26.9 %; Mean Corpuscular HGB Conc 33.1 g/dL (30-55); Mean Corpuscular Hemoglobin 28.2 pg (27-33); Mean Corpuscular Volume 85.2 fl (82-101); Mean Platelet Volume 8.7 fL (7.4-10.4); Monocytes % 13.3 %; Neutrophils # 4.38 10^3/uL (1.8-7.7); Neutrophils % 56.6 %; Nucleated Red Blood Cells % 0 %; Platelet Count 326 10^3/cmm (157-399); Red Blood Count 5.39 10^6/uL (3.85-5.65); Red Cell Distribution Width 14.5 % (12.1-15.1); White Blood Count 7.74 10^3/uL (3.29-11.43)
[2024-10-09 12:36] LABS: Erythrocyte Sedimentation Rate 35 mm/hr (0-10)
[2024-10-09 12:55] LABS: Alanine Aminotransferase 8 U/L (0-41); Albumin Level 3.8 g/dL (3.5-5.2); Alkaline Phosphatase 113 U/L (40-130); Aspartate Amino Transferase 13 U/L (0-40); C Reactive Protein 24.7 mg/L (0.0-4.9); Globulin 3.4 g/dL (1.3-4.6); Glomerular Filtration Rate 96.1 mL/min (90-130); Total Bilirubin 0.3 mg/dL (0.15-1.2); Total Protein 7.2 g/dL (6.6-8.7)
== END 2024-10-09 11:42 | disposition home or self-care (01) ==
PROVIDERS: PCP Registered Nurse; Visit Provider Internal Medicine Rheumatology
DX: G72.49 Other inflammatory and immune myopathies, not elsewhere classified (principal)
CPT/HCPCS: 36415; 80076; 82565; 85025; 85651; 86140

== ENCOUNTER 2024-11-04 12:21 | Outpatient (CLI) | payer MEDICARE, SELFPAY ==
--- NOTE | 2024-11-04 12:45 | USCV_ITS ---
Erasmo Simon Age: 69 Gender: M : 1955 Exam Date: 11/04/2024 12:45 Ordering Phys: Brown Rojas M.D ([email or web address]) Technologist: MARIA DOLORES [place] [facility] [place]: stenosis Risk Factors: Previous Vascular Surgery: Right Brachial BP: / Left Brachial BP: / Right Left Velocity (cm/s) Spectral Plaque Velocity (cm/s) Spectral Plaque Syst/Diast Broadening Syst/Diast Broadening 61.80/ 15.40 Prox CCA 64.60 / 14.80 53.80/ 14.60 Mid CCA 66.80 / 14.30 53.00/ 15.40 Distal CCA 45.50 / 12.70 61.10/ 19.80 Prox ICA 34.20 / 7.90 124.50/39.40 Mid ICA 42.20 / 14.90 77.70/ 18.50 Distal ICA 47.50 / 15.90 205.10 ECA 72.80 1.20 ICA/CCA 0.80 Antegrade Vertebral Antegrade 34.40/ 13.70 cm/s 28.50/ 9.00 cm/s Tri Subclavian Tri 56.70 153.3 0 FINDINGS Comparison:. 04/16/24 No significant elevation of systolic or diastolic velocities. Waveforms are normal. Bilateral scattered calcified plaque extending through the bifurcation. Antegrade vertebral arteries. CONCLUSIONS No interval change in stenosis since prior exam. Bilateral ICA stenosis less than 50%. Dr. Zofia Brandon DO (Electronically Signed) Final Date: 04 November 2024 13:21 S
== END 2024-11-04 12:22 | disposition home or self-care (01) ==
LOC: RAD 12:23
PROVIDERS: PCP Registered Nurse; Visit Provider Internal Medicine
DX: I77.9 Disorder of arteries and arterioles, unspecified (principal)
CPT/HCPCS: 93880

== ENCOUNTER → 2025-02-04 12:22 | Outpatient (BNVA) | payer MEDICARE, SELFPAY | PROVIDERS: PCP Registered Nurse; Visit Provider Internal Medicine Rheumatology | DX: G72.49 Other inflammatory and immune myopathies, not elsewhere classified (principal); R76.8 Other specified abnormal immunological findings in serum; J84.9 Interstitial pulmonary disease, unspecified; M13.0 Polyarthritis, unspecified; Z79.899 Other long term (current) drug therapy | CPT/HCPCS: 99214 ==

== ENCOUNTER 2025-02-20 13:20 | Outpatient (CLI) | payer MEDICARE, SELFPAY ==
[2025-02-20 13:57] LABS: Hematocrit 44.9 % (37-53); Hemoglobin 14.80 g/dL (11.27-16.99); Mean Corpuscular HGB Conc 33.0 g/dL (30-55); Mean Corpuscular Hemoglobin 28.5 pg (27-33); Mean Corpuscular Volume 86.5 fl (82-101); Nucleated Red Blood Cells % 0 %; Platelet Count 325 10^3/cmm (157-399); Red Blood Count 5.19 10^6/uL (3.85-5.65); White Blood Count 9.45 10^3/uL (3.29-11.43)
[2025-02-20 14:20] LABS: Alanine Aminotransferase 10 U/L (0-41); Albumin Level 4.0 g/dL (3.5-5.2); Alkaline Phosphatase 105 U/L (40-130); Aspartate Amino Transferase 17 U/L (0-40); Globulin 3.3 g/dL (1.3-4.6); Total Protein 7.3 g/dL (6.6-8.7)
== END 2025-02-20 13:21 | disposition home or self-care (01) ==
PROVIDERS: PCP Registered Nurse; Visit Provider Internal Medicine Rheumatology
DX: Z79.899 Other long term (current) drug therapy (principal)
CPT/HCPCS: 36415; 80076; 82565; 85025; 85651; 86140

== ENCOUNTER 2025-04-18 10:02 | Outpatient (CLI) | payer MEDICARE, SELFPAY ==
--- NOTE | 2025-04-18 10:30 | CT_ITS ---
WS: [id number] CT ABDOMEN AND PELVIS NONCONTRAST HISTORY: R10.9 - Unspecified abdominal pain TECHNIQUE: Imaging performed through the abdomen and pelvis. Coronal and sagittal reformats are submitted. All CT scans at [facility] use at least one of these dose optimization techniques: automated exposure control; mA and/or kV adjustment per patient size (includes targeted exams where dose is matched to clinical indication); or iterative reconstruction. DLP: 721.83 mGy.cm COMPARISON: None available. Lower thorax: Mild hazy attenuation at the lung bases. Peripheral groundglass attenuation. No mass or nodule. Normal size heart. Liver: Normal size liver. No mass or bile duct dilatation. Gallbladder: Normal gallbladder. No pericholecystic fluid or cholelithiasis. No gallbladder wall thickening. Pancreas: Normal size and attenuation. Normal pancreatic duct. No pancreatitis or mass. Spleen: Normal size spleen with granulomata. Adrenal glands: Normal. No mass. Right kidney: Mild perinephric stranding. No renal obstruction. Small calcifications in the central pelvis may be arterial and etiology. Normal size RIGHT ureter. Left kidney: Mild perinephric stranding with no obstruction. There are small calcifications which may be arterial. No LEFT ureteral dilatation. Aorta: Mild atherosclerosis abdominal aorta with no aneurysm. No free fluid, intraperitoneal air or significant lymphadenopathy. GI tract: No obstruction. Stomach is well distended with food products. No appendicitis or diverticulitis. Moderate diffuse constipation. Abdominal wall: Negative. No hernia. Pelvis: No free fluid or adenopathy. Urinary bladder is normally distended. Bilateral fat-containing inguinal canals. Osseous structures: Mild increase in lumbar lordosis. CT/CT abdomen pelvis wo con [id number] IMPRESSION: 1. Moderate diffuse constipation. 2. No acute abdominal or pelvic abnormalities. 3. Mild bilateral perinephric stranding. Perinephric stranding may be chronic or due to mild acute pyelonephritis. No renal obstruction. 4. No ascites or adenopathy. 5. Mild atherosclerosis aorta.
== END 2025-04-18 10:03 | disposition home or self-care (01) ==
LOC: RAD 10:03
PROVIDERS: PCP Nurse Practitioner Family; Visit Provider Nurse Practitioner Family
DX: R10.9 Unspecified abdominal pain (principal); R93.429 Abnormal radiologic findings on diagnostic imaging of unspecified kidney; R93.421 Abnormal radiologic findings on diagnostic imaging of right kidney; R93.422 Abnormal radiologic findings on diagnostic imaging of left kidney; I70.0 Atherosclerosis of aorta; K59.09 Other constipation
CPT/HCPCS: 74176

== ENCOUNTER → 2025-05-05 13:43 | Outpatient (BNVA) | payer MEDICARE, SELFPAY | PROVIDERS: PCP Nurse Practitioner Family; Visit Provider Internal Medicine | DX: I10 Essential (primary) hypertension (principal); E78.5 Hyperlipidemia, unspecified; I77.9 Disorder of arteries and arterioles, unspecified; F17.210 Nicotine dependence, cigarettes, uncomplicated | CPT/HCPCS: 36415; 80061; 80076; 82565; 85025; 85651; 86140; 99213 ==